=== PATIENT | male | born 1980 | race Caucasian/White ===

== ENCOUNTER 2025-03-05 15:37 | Emergency (ER) | payer BC ==
[~2025-03-05] VITALS: Ht 170.2 cm; Wt 61.2 kg
[2025-03-05 16:20] VITALS: TEMP 98.4
[2025-03-05] MEDS: KETOROLAC TROMETHAMINE 15 MG/ML VIAL IM ONE (16:30)
[2025-03-05] MEDS ORDERED: KETOROLAC TROMETHAMINE 15 MG/ML VIAL ONE (17:28)
[2025-03-05] MEDS ORDERED: ACET325C7 PO (20:01)
[2025-03-05] MEDS ORDERED: IBUP-1955 PO (20:01)
[2025-03-05 20:11] VITALS: BP 134/88; O2SAT 98
== END 2025-03-05 20:20 | disposition home or self-care (01) ==
LOC: ER 15:37
DX: M25.571 Pain in right ankle and joints of right foot (principal); M25.572 Pain in left ankle and joints of left foot
CPT/HCPCS: 99284; 96372; 73610 ×2; 73630; J1885